=== PATIENT | male | born 1950 | race Caucasian/White ===

== ENCOUNTER 2021-04-14 18:10 | Emergency (ER) | payer OTHER, SELFPAY ==
[2021-04-14 18:23] VITALS: BP 110/57; PULSE 84; RESP 18; TEMP 37.2; O2SAT 91; BMI 38.4
--- NOTE | 2021-04-14 18:39 | CTR_ITS ---
PROCEDURE INFORMATION: Exam: CT Abdomen And Pelvis With Contrast Exam date and time: 04/14/2021 6:39 PM Age: 71 years old Clinical indication: Abdominal pain; Localized; Lower; Prior surgery; Surgery date: Post-operative (0-2 days); Patient HX: Post op pain, hernia repair x 1day. PT fell backwards into chair TECHNIQUE: Imaging protocol: Computed tomography of the abdomen and pelvis with contrast. Radiation optimization: All CT scans at this facility use at least one of these dose optimization techniques: automated exposure control; mA and/or kV adjustment per patient size (includes targeted exams where dose is matched to clinical indication); or iterative reconstruction. Contrast material: VISIPAQUE 320; Contrast volume: 95 ml; Contrast route: INTRAVENOUS (IV); COMPARISON: No relevant prior studies available. RADIATION DOSE METRICS: Total DLP (mGy-cm): 2496.33 FINDINGS: Lungs: Mild basilar atelectasis/scarring. Heart: Prosthetic aortic valve. Liver: Moderate hepatic steatosis. No focal lesions. Gallbladder and bile ducts: Normal. No calcified stones. No ductal dilation. Pancreas: Normal. No ductal dilation. Spleen: Normal. No splenomegaly. Adrenal glands: Normal. No mass. Kidneys and ureters: No hydroureteronephrosis or calculi. Kidneys enhance normally with no masses. Stomach and bowel: No obstruction. No inflammatory changes. Appendix: No evidence of appendicitis. Intraperitoneal space: No free air. No significant fluid collection. Vasculature: Extensive atherosclerotic calcification. Mild infrarenal abdominal aortic aneurysm measuring a maximum 3.2 cm diameter. No evidence of rupture. Lymph nodes: Unremarkable. No enlarged lymph nodes. Urinary bladder: Bladder is partially filled, with Patel catheter place. Reproductive: The prostate is not enlarged. Scrotal oedema. Bones/joints: Median sternotomy wires. No acute or aggressive osseous lesion. Soft tissues: Recent postsurgical changes bilateral inguinal regions with extensive subcutaneous stranding and small foci air. There is edema of the scrotum. No organized fluid collection identified. CT/CT abdomen pelvis w con* [id number] IMPRESSION: 1. Recent postoperative changes with extensive subcutaneous stranding edema throughout the inguinal regions at scrotum, with scattered but 5 air. No organized fluid collection. 2. Moderate hepatic steatosis. 3. 3.2 cm infrarenal abdominal aortic aneurysm. 4. Other chronic and incidental findings as described.
[2021-04-14 19:03] VITALS: RESP 16; O2SAT 94
[2021-04-14] MEDS: HYDROmorphone 1 mg/mL INJ 1 mL 0.5 MG IVP (19:03)
[2021-04-14] MEDS: ondansetron 2 mg/ML SDV 2 mL 4 MG IVP (19:03)
--- NOTE | 2021-04-14 19:14 | W.ED.ABDPA2 ---
HPI - Abdominal Pain General: Chief Complaint: Abdominal Pain Stated Complaint: abdominal pain/ fall Time Seen by Provider: 04/14/21 18:24 Source: patient and EMS Mode of arrival: EMS Limitations: no limitations History of Present Illness: HPI narrative: 71-year-old male who states he had bilateral inguinal hernia surgery done yesterday at [facility] he states that discharge him he is not been able to ambulate states that his cannot get him out of bed and is unable to take care of himself at home. States that he is having severe abdominal pain cannot take his hydrocodone due to it causing him severe constipation. He states he did not want to leave the hospital and they discharged him and he does not believe that he can go back home as he cannot take care of himself. States pain sharp in nature rates it a 7 out of 10 denies any vomiting or diarrhea. Associated Symptoms: Denies dysuria Review of Systems Const: Reports: fatigue Eyes: Denies: blurry vision or eye discomfort ENMT: Denies: throat pain or dental pain Card: Denies: chest pain Resp: Denies: dyspnea GI: Reports: abdominal pain : Denies: dysuria Musc: Denies: neck pain or back pain Skin/Breast: Denies: rash Neuro: Denies: headache(s) Psych: Denies: depression Moses/Lymph: Denies: easy bruising All/Imm: Denies: urticaria Physical Exam Const: COMMON NORMALS: no acute distress, patient oriented x3 and healthy appearing HENMT: COMMON NORMALS: normocephalic and atraumatic HEAD & SCALP: normocephalic and atraumatic Eye: COMMON NORMALS: Equal, round and reactive pupils present and EOMs intact bilaterally PUPIL: Yes Equal, round and reactive pupils present Neck/C-Spine: COMMON NORMALS: full ROM and supple Chest: COMMONS NORMALS: normal inspection of the chest and normal palpation of entire chest wall Resp: COMMON NORMALS: normal respiratory effort, No retractions, No use of accessory muscles and clear to auscultation bilaterally AUSCULTATION: clear to auscultation bilaterally Cardio: COMMON NORMALS: regular rate, regular rhythm and No murmurs present (Cardio) RATE: regular rate RHYTHM: regular rhythm GI: COMMON NORMALS: Normal to inspection, nondistended, normoactive bowel sounds present, Soft to palpation, non-tender and no masses PALPATION: Yes Soft to palpation Extremity: COMMON NORMALS: normal to inspection and full ROM Neuro: COMMON NORMALS: patient oriented x3, moves all extremities and no focal motor deficits Psych: COMMON NORMALS: mental status grossly normal, Normal thought process present and cooperative THOUGHT PROCESS: Normal thought process present Skin: COMMON NORMALS: no rashes or lesions noted and no wounds GENERAL SKIN EXAM: no rashes or lesions noted Course Vital Signs: Vital signs: Vital Signs Temperature 98.9 F 04/14/21 18:23 Pulse Rate 82 04/14/21 19:31 Respiratory Rate 16 04/14/21 19:31 Blood Pressure 110/57 04/14/21 18:23 Pulse Oximetry 94 04/14/21 19:31 MDM - Abdominal Pain MDM Narrative: Medical decision making narrative: Patient presents for severe postop abdominal pain states that he is unable to take care of himself at home unable to get out of bed and his is disabled and cannot help him either states his pain is severe is unable to control at home CT scan blood work here are all normal I spoke to physician at [facility] where he had the surgery and will transfer there. Patient transferred due to continued of care also as we have no bed availability here. Lab Data: Labs: Lab Results 04/14/21 04/14/21 04/14/21 19:15 19:15 19:41 WBC 9.7 10^3/uL 10^3/ uL (4.0-10.0) RBC 3.83 10^6/uL L 10 ^6/uL (4.1-5.3) Hgb 11.6 g/dL L g/dL (11.7-16.6) Hct 36.2 % L % (42.0-52.0) MCV 94.5 fl H fl (80-94) MCH 30.3 pg pg (28.0-34.0) MCHC 32.0 g/dL g/dL (30.0-36.0) RDW 16.0 % H % (12.1-15.1) Plt Count 146 10^3/cmm 10^3 /cmm (130-400) MPV 10.0 fL fL (7.4-10.4) Neut % (Auto) 72.8 % % Lymph % (Auto) 13.3 % % [place] % (Auto) 11.7 % % Eos % (Auto) 1.2 % % Baso % (Auto) 0.4 % % Neut # (Auto) 7.08 10^3/uL 10^3 /uL (1.8-7.7) Lymph # (Auto) 1.3 10^3/uL 10^3/ uL (0.8-4.8) [place] # (Auto) 1.1 10^3/uL H 10^ 3/uL (0.2-0.9) Eos # (Auto) 0.1 10^3/uL 10^3/ uL (0.0-0.8) Baso # (Auto) 0.0 10^3/uL 10^3/ uL (0.0-0.1) Nucleated RBC % (a uto) 0 % % Nucleated RBCs # 0.0 /100WBC /100W BC Sodium 135 mmol/L L mmol /L (136-145) Potassium 4.1 mmol/L mmol/L (3.5-5.1) Chloride 103 mmol/L mmol/L (98-107) Carbon Dioxide 23 mmol/L mmol/L (22-29) Anion Gap 13.1 (5-19) BUN 18 mg/dL mg/dL (8-23) Creatinine 1.4 mg/dL H mg/dL (0.7-1.2) GFR Calculation 50.1 mL/min L mL/ min (90-130) Glucose 129 mg/dL H mg/dL (65-115) Calculated Osmolal ity 284 mOsm/kg L mOs m/kg (285-295) Calcium 7.9 mg/dL L mg/dL (8.5-10.5) Total Bilirubin 0.7 mg/dL mg/dL (0.15-1.2) AST 22 U/L U/L (0-40) ALT 28 U/L U/L (0-41) Alkaline Phosphata se 45 IU/L IU/L (40-130) Total Protein 6.3 g/dL L g/dL (6.6-8.7) Albumin 3.7 g/dL g/dL (3.5-5.2) Globulin 2.6 g/dL g/dL (1.3-4.6) Lipase 16 U/L U/L (13-60) Urine Color Yellow (Yellow) Urine Appearance Hazy A (CLEAR) Urine pH 5 (5-7) Ur Specific Gravit y 1.015 (1.005-1.030) Urine Protein Neg (Negative) Urine Glucose (UA) 4+ H (Normal) Urine Ketones Negative (Negative) Urine Blood 2+ H (Negative) Urine Nitrate Negative (Negative) Urine Bilirubin Neg (Negative) Urine Urobilinogen Norm mg/dL mg/dL (Negative) Ur Leukocyte Princess ase Negative (Negative) Urine RBC 0-4 /hpf H /hpf (0-2) Urine WBC 5-10 /hpf H /hpf (0-5) Ur Squamous Epith Cells 0-4 /hpf H /hpf (0-5) Amorphous Sediment Not Reportable Urine Bacteria 1+ /hpf H /hpf (NONE) Imaging Data ^: CT Abd/Pel: Attestation: I personally reviewed and interpreted this imaging study as follows: Radiologist's impression: [place] [address] CT Scan Report Signed Patient: Deejay Dominguez Unit #: [id number] : 1950 Age/Sex: 71 / M ADM Date: 04/14/21 Loc: ER Room/Bed: Attending Dr: Ordering Provider/Ordering MD: Ely Stephen MD Date of Service: 04/14/21 Procedure(s): CT abdomen pelvis w con* [id number] Accession Number(s): [id number] Report Number: [id number] PROCEDURE INFORMATION: Exam: CT Abdomen And Pelvis With Contrast Exam date and time: 04/14/2021 6:39 PM Age: 71 years old Clinical indication: Abdominal pain; Localized; Lower; Prior surgery; Surgery date: Post-operative (0-2 days); Patient HX: Post op pain, hernia repair x 1day. PT fell backwards into chair TECHNIQUE: Imaging protocol: Computed tomography of the abdomen and pelvis with contrast. Radiation optimization: All CT scans at this facility use at least one of these dose optimization techniques: automated exposure control; mA and/or kV adjustment per patient size (includes targeted exams where dose is matched to clinical indication); or iterative reconstruction. Contrast material: VISIPAQUE 320; Contrast volume: 95 ml; Contrast route: INTRAVENOUS (IV); COMPARISON: No relevant prior studies available. RADIATION DOSE METRICS: Total DLP (mGy-cm): 2496.33 FINDINGS: Lungs: Mild basilar atelectasis/scarring. Heart: Prosthetic aortic valve. Liver: Moderate hepatic steatosis. No focal lesions. Gallbladder and bile ducts: Normal. No calcified stones. No ductal dilation. Pancreas: Normal. No ductal dilation. Spleen: Normal. No splenomegaly. Adrenal glands: Normal. No mass. Kidneys and ureters: No hydroureteronephrosis or calculi. Kidneys enhance normally with no masses. Stomach and bowel: No obstruction. No inflammatory changes. Appendix: No evidence of appendicitis. Intraperitoneal space: No free air. No significant fluid collection. Vasculature: Extensive atherosclerotic calcification. Mild infrarenal abdominal aortic aneurysm measuring a maximum 3.2 cm diameter. No evidence of rupture. Lymph nodes: Unremarkable. No enlarged lymph nodes. Urinary bladder: Bladder is partially filled, with Patel catheter place. Reproductive: The prostate is not enlarged. Scrotal oedema. Bones/joints: Median sternotomy wires. No acute or aggressive osseous lesion. Soft tissues: Recent postsurgical changes bilateral inguinal regions with extensive subcutaneous stranding and small foci air. There is edema of the scrotum. No organized fluid collection identified. CT/CT abdomen pelvis w con* [id number] IMPRESSION: 1. Recent postoperative changes with extensive subcutaneous stranding edema throughout the inguinal regions at scrotum, with scattered but 5 air. No organized fluid collection. 2. Moderate hepatic steatosis. 3. 3.2 cm infrarenal abdominal aortic aneurysm. 4. Other chronic and incidental findings as described. Dictated By: Jason Mulligan MD Signed By: Jason Mulligan MD Signed Date/Time: 04/14/212117 DD/ 38 Discharge Plan Discharge Patient Disposition: Xfer Short-Term Hosp Clinical Impression: Acute postoperative abdominal pain Condition: Stable Patient Instructions: Abdominal Pain (ED) Coding Level of Care Code ED Animated Cartoons Painter for Chg Fwd Exam Comprehensive
[2021-04-14 19:25] LABS: Basophils % 0.4 %; Eosinophils # 0.1 10^3/uL (0.0-0.8); Eosinophils % 1.2 %; Hematocrit 36.2 % (42.0-52.0); Hemoglobin 11.6 g/dL (11.7-16.6); Lymphocytes # 1.3 10^3/uL (0.8-4.8); Lymphocytes % 13.3 %; Mean Corpuscular Hemoglobin 30.3 pg (28.0-34.0); Mean Corpuscular Volume 94.5 fl (80-94); Monocytes # 1.1 10^3/uL (0.2-0.9); Monocytes % 11.7 %; Neutrophils # 7.08 10^3/uL (1.8-7.7); Neutrophils % 72.8 %; Nucleated Red Blood Cells % 0 %; Platelet Count 146 10^3/cmm (130-400); Red Blood Count 3.83 10^6/uL (4.1-5.3); White Blood Count 9.7 10^3/uL (4.0-10.0)
[2021-04-14 19:31] VITALS: PULSE 82; RESP 16; O2SAT 94
[2021-04-14 19:48] LABS: Glucose Urine UA 4+ (Normal); Ketones Urine Negative (Negative); Protein Urine Neg (Negative); Specific Gravity, Urine 1.015 (1.005-1.030); Urine Appearance Hazy (CLEAR); Urine Color Yellow (Yellow); pH Urine 5 (5-7)
[2021-04-14 19:49] LABS: Add Urine Microscopic? YES; Bilirubin Urine Neg (Negative); Blood Urine 2+ (Negative); Leukocyte Esterase Urine Negative (Negative); Nitrate Urine Negative (Negative); Urobilinogen Urine Norm (Negative)
[2021-04-14 19:51] LABS: Alanine Aminotransferase 28 U/L (0-41); Albumin Level 3.7 g/dL (3.5-5.2); Alkaline Phosphatase 45 IU/L (40-130); Anion Gap 13.1 (5-19); Aspartate Amino Transferase 22 U/L (0-40); Blood Urea Nitrogen 18 mg/dL (8-23); Calcium 7.9 mg/dL (8.5-10.5); Carbon Dioxide 23 mmol/L (22-29); Chloride 103 mmol/L (98-107); Globulin 2.6 g/dL (1.3-4.6); Glomerular Filtration Rate 50.1 mL/min (90-130); Glucose 129 mg/dL (65-115); Lipase 16 U/L (13-60); Osmolality Calculated 284 mOsm/kg (285-295); Potassium 4.1 mmol/L (3.5-5.1); Sodium 135 mmol/L (136-145); Total Bilirubin 0.7 mg/dL (0.15-1.2); Total Protein 6.3 g/dL (6.6-8.7)
[2021-04-14 19:54] LABS: Add Urine Culture? Yes; Bacteria Urine 1+ /hpf; RBC Urine 0-4 /hpf (0-2); Squamous Epithelial Cell Urine 0-4 /hpf (0-5)
[2021-04-14] MEDS: iodixanol 320 mg/mL 100mL Btl IV (20:10)
[2021-04-14 22:41] VITALS: BP 150/60; RESP 20; O2SAT 96
[2021-04-14 23:13] LABS: SARS Covid-2 Antigen Negative (Negative)
[2021-04-14] MEDS: enoxaparin 100 mg/mL Syringe SUBCUT (23:30)
[2021-04-14 23:31] VITALS: RESP 19
[2021-04-14] MEDS: HYDROmorphone 1 mg/mL INJ 1 mL IVP (23:31)
[2021-04-15 02:04] VITALS: BP 124/66; PULSE 81; RESP 18; O2SAT 92
[2021-04-15 03:42] VITALS: RESP 17
[2021-04-15] MEDS: HYDROmorphone 1 mg/mL INJ 1 mL IVP ×3 (03:42→11:02)
[2021-04-15] MEDS: lidocaine 5% Patch 1 PATCH TOPICAL (04:10)
[2021-04-15 04:11] VITALS: BP 116/59; PULSE 84; RESP 21; O2SAT 90
[2021-04-15 06:36] VITALS: BP 123/63; PULSE 87; RESP 16; O2SAT 91
--- NOTE | 2021-04-15 07:00 | PC.NURSE ---
Recieved report from YAMILEX Ruff. Rounded on pt, requested pt sign his transfer form. No further need at this time.
[2021-04-15 08:30] VITALS: RESP 18; O2SAT 94
[2021-04-15 11:02] VITALS: RESP 16; O2SAT 97
[2021-04-15] MEDS: ondansetron 2 mg/ML SDV 2 mL 4 MG IVP (11:08)
== END 2021-04-15 11:12 | disposition short-term general hospital (02) ==
PROVIDERS: Emergency Provider Emergency Medicine
DX: G89.18 Other acute postprocedural pain (principal); R10.9 Unspecified abdominal pain; Z20.822 Contact with and (suspected) exposure to COVID-19
CPT/HCPCS: 74177; 80053; 81001; 83690; 85025; 87086; 87426; 96372; 96374; 96375; 96376; 99285; 99291; J1170; J1650; J2405; Q9967

== ENCOUNTER 2023-07-19 10:04 | Emergency (ER) | payer OTHER, SELFPAY ==
[2023-07-19 10:12] VITALS: BP 127/79; PULSE 90; RESP 20; TEMP 36.5; O2SAT 96; BMI 36.1
--- NOTE | 2023-07-19 10:31 | XRR_ITS ---
PROCEDURE INFORMATION: Exam: XR Chest Exam date and time: 07/19/2023 10:37 AM Age: 73 years old Clinical indication: Cough and dyspnea; Additional info: Dyspnea/cough TECHNIQUE: Imaging protocol: Radiologic exam of the chest. Views: 1 view. COMPARISON: CT abdomen pelvis w con* [id number] 04/14/2021 8:08 PM FINDINGS: Tubes, catheters and devices: There is a left subclavian unipolar pacemaker in place. Lungs: There is linear atelectasis and/or scarring in the right lung base. There are no acute infiltrates. Pleural spaces: Unremarkable. No pleural effusion. No pneumothorax. Heart/Mediastinum: The heart size is upper limits of normal. Bones/joints: Patient has undergone previous median sternotomy. Patient has undergone previous lower cervical fusion surgery. XR/XR chest 1V portable [id number] IMPRESSION: 1. Pacemaker 2. Heart upper limits of normal 3. Negative for focal infiltrate. Negative for congestive heart failure
--- NOTE | 2023-07-19 10:32 | ECG_ITS ---
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 Measurements Intervals [place] Rate: 80 P: 29 NE: 191 QRS: -28 QRSD: 137 T: 25 QT: 374 QTc: 433 Interpretive Statements SINUS RHYTHM INTRAVENTRICULAR CONDUCTION DELAY [130+ ms QRS DURATION] MODERATE VOLTAGE CRITERIA FOR LVH, CONSIDER NORMAL VARIANT [MEETS CRITERIA IN ONE OF: R(aVL), S(V1), R(V5), R(V5/V6)+S(V1)] No previous ECG available for comparison Electronically Signed On 07-19-2023 15:19:58 CDT by Niles Brown M.D. [email or web address]
[2023-07-19 10:45] VITALS: BP 127/79; PULSE 75; RESP 18; O2SAT 95
--- NOTE | 2023-07-19 10:45 | ED_ITS ---
HPI - Arrhythmia/Palpitations 2 General: Chief Complaint: Arrhythmia/Palpitations Stated Complaint: sent from [facility], heart monitor not working right Time Seen by Provider: 07/19/23 10:15 Source: patient Mode of arrival: ambulatory History of Present Illness: 73-year-old male presents emergency room complaining of generally not feeling well little bit of short of breath mild chest discomfort. Patient has an ICD the monitoring device at home had evidently made a report to the monitoring station and he was called and told that the device was out of sync and he should present to the emergency room. He has not had any discharges he is not had any palpitations. He has not noticed any swelling or worsening orthopnea. Associated symptoms: Reports short of breath; Deny anxiety, cough, diaphoresis, muscle cramps, nausea, paresthesias, pre- syncope, sense of impending doom, syncope or vomiting Review of Systems 2 Const: Denies: fever(s), chills or diaphoresis Card: Denies: chest pain, syncope or pre-syncope Resp: Denies: dyspnea GI: Denies: abdominal pain, nausea or vomiting : Denies: dysuria, urinary frequency or urinary urgency Musc: Denies: neck pain, back pain or muscle cramps Skin/Breast: Denies: rash Psych: Denies: anxiety Physical Exam 2 Const: COMMON NORMALS: no acute distress GENERAL APPEARANCE: cooperative and comfortable ORIENTATION/CONSCIOUSNESS: Yes awake, Yes oriented to person, Yes oriented to place and Yes oriented to time HENMT: COMMON NORMALS: normocephalic, atraumatic and hearing grossly normal bilaterally HEAD & SCALP: normocephalic and atraumatic Resp: COMMON NORMALS: normal respiratory effort, No retractions, No use of accessory muscles and clear to auscultation bilaterally AUSCULTATION: clear to auscultation bilaterally Cardio: COMMON NORMALS: regular rate, regular rhythm and No murmurs present (Cardio) RATE: regular rate RHYTHM: regular rhythm GI: COMMON NORMALS: Soft to palpation and No hepatosplenomegaly present A USCULTATION: Yes normoactive bowel sounds PALPATION: Yes Soft to palpation, No Tenderness to palpation present (GI), No Guarding due to palpation present (GI) and Yes No hepatosplenomegaly present Extremity: COMMON NORMALS: normal to inspection, capillary refill normal, no clubbing, cyanosis or edema, no calf tenderness and no pedal edema Neuro: SENSORIUM/ORIENTATION: Yes oriented to person, Yes oriented to place and Yes oriented to time Skin: COMMON NORMALS: no rashes or lesions noted GENERAL SKIN EXAM: no rashes or lesions noted Course 2 Vital Signs: Vital signs: Vital Signs Temperature 97.7 F 07/19/23 10:12 Pulse Rate 68 07/19/23 14:06 Respiratory Rate 16 07/19/23 14:06 Blood Pressure 113/70 07/19/23 14:06 Pulse Oximetry 96 07/19/23 14:06 Oxygen Delivery Me thod Room Air 07/19/23 10:45 MDM - Arrhythmia/Palpitations Medical Decision Making Patient has been completely asymptomatic since arrival. No arrhythmias. Interrogation of the pacemaker shows it was not able to connect for routine monitoring on his home monitor at home but otherwise no other abnormalities on the report or per the tech report who prepared the report. We attempted to contact the cardiology office that had contacted him and told him to be evaluated we are not able to get in contact with the patient as he has had difficulty contacting them in the past as well. We monitored here for an extended period of time while we are trying to contact the tool programmer to find out what their concern was. Ultimately patient decided he would rather go home I do not see any reason to admit or do anything otherwise based on the heart monitor. His vitals have been stable he is completely asymptomatic prior to arrival and during his time here discharged home and encouraged him to follow-up with the cardiology clinic that he usually sees a soon as possible. Also advised to return if he has any complications problems or concerns. Medical Records I reviewed the patient's medical records. Lab Data I reviewed the patient's lab results. 07/19/23 10:40 07/19/23 10:40 Radiology Impressions Chest X-Ray 07/19/23 10:31 IMPRESSION: 1. Pacemaker 2. Heart upper limits of normal 3. Negative for focal infiltrate. Negative for congestive heart failure Laboratory Results WBC 6.98 10^3/uL (3.29-11.43) 07/19/23 10:40 RBC 5.50 10^6/uL (3.85-5.65) 07/19/23 10:40 Hgb 14.00 g/dL (11.27-16.99) 07/19/23 10:40 Hct 44.6 % (37-53) 07/19/23 10:40 MCV 81.1 fl (82-101) L 07/19/23 10:40 MCH 25.5 pg (27-33) L 07/19/23 10:40 MCHC 31.4 g/dL (30-55) 07/19/23 10:40 RDW 15.7 % (12.1-15.1) H 07/19/23 10:40 Plt Count 209 10^3/cmm (157-399) 07/19/23 10:40 MPV 9.5 fL (7.4-10.4) 07/19/23 10:40 Neut % (Auto) 64.9 % 07/19/23 10:40 Lymph % (Auto) 23.1 % 07/19/23 10:40 [place] % (Auto) 6.9 % 07/19/23 10:40 Eos % (Auto) 3.3 % 07/19/23 10:40 Baso % (Auto) 1.1 % 07/19/23 10:40 Neut # (Auto) 4.53 10^3/uL (1.8-7.7) 07/19/23 10:40 Lymph # (Auto) 1.6 10^3/uL (0.8-4.8) 07/19/23 10:40 [place] # (Auto) 0.5 10^3/uL (0.2-0.9) 07/19/23 10:40 Eos # (Auto) 0.2 10^3/uL (0.0-0.8) 07/19/23 10:40 Baso # (Auto) 0.1 10^3/uL (0.0-0.1) 07/19/23 10:40 Nucleated RBC % (auto) 0 % 07/19/23 10:40 Nucleated RBCs # 0.0 /100WBC 07/19/23 10:40 Sodium 136 mmol/L (136-145) 07/19/23 10:40 Potassium 4.3 mmol/L (3.5-5.1) 07/19/23 10:40 Chloride 99 mmol/L (98-107) 07/19/23 10:40 Carbon Dioxide 22 mmol/L (22-29) 07/19/23 10:40 Anion Gap 19.3 (5-19) H 07/19/23 10:40 BUN 15 mg/dL (8-23) 07/19/23 10:40 Creatinine 1.4 mg/dL (0.7-1.2) H 07/19/23 10:40 GFR Calculation Not Reportable 07/19/23 10:40 Glucose 177 mg/dL (65-115) H 07/19/23 10:40 Calculated Osmolality 287 mOsm/kg (285-295) 07/19/23 10:40 Calcium 8.6 mg/dL (8.5-10.5) 07/19/23 10:40 Total Bilirubin 0.4 mg/dL (0.15-1.2) 07/19/23 10:40 AST 27 U/L (0-40) 07/19/23 10:40 ALT 25 U/L (0-41) 07/19/23 10:40 Alkaline Phosphatase 54 U/L (40-130) 07/19/23 10:40 Troponin T Baseline 19 ng/L (0-15) H 07/19/23 10:40 Troponin T 120 Minute 16.87 ng/L (0-15) H 07/19/23 12:46 Delta Troponin T -2.13 ABS# (0-10) L 07/19/23 12:46 Total Protein 7.1 g/dL (6.6-8.7) 07/19/23 10:40 Albumin 4.3 g/dL (3.5-5.2) 07/19/23 10:40 Globulin 2.8 g/dL (1.3-4.6) 07/19/23 10:40 All radiology interpretation(s) finalized by discharge Discharge Plan Discharge Patient Disposition: Home Clinical Impression: Palpitations, Atypical chest pain Condition: Stable Prescriptions: No Action furosemide [Lasix] 40 mg Tablet 40 mg PO BID albuterol sulfate 2.5 mg /3 mL (0.083 %) Solution For Nebulization 2.5 mg INHALATION Q6H PRN (Reason: Shortness Of Breath) tramadol 50 mg Tablet 50 mg PO BID PRN (Reason: Pain) acetaminophen 500 mg Tablet 500 mg PO Q6H PRN (Reason: Pain) spironolactone 25 mg Tablet 25 mg PO DAILY famotidine 20 mg Tablet 20 mg PO BID tamsulosin [Flomax] 0.4 mg Capsule 0.4 mg PO BID meclizine 25 mg Tablet 25 mg PO TID PRN (Reason: dizziness) diphenhydramine HCl [Benadryl] 25 mg Capsule 25 mg PO BEDTIME PRN (Reason: Sleep) lansoprazole [Prevacid] 30 mg Capsule,Delayed Release(Dr/Ec) 30 mg PO BID lidocaine 5 % Adhesive Patch,Medicated 1 patch TOPICAL DAILY warfarin 5 mg Tablet See Rx Instructions .ROUTE .COMPLEX Rx Instructions: 5 mg orally daily except on (2.5 mg) hydrocortisone 2.5 % Cream 1 applic TOPICAL DAILY PRN (Reason: Rash) montelukast [Singulair] 10 mg Tablet 10 mg PO BID epinephrine [EpiPen] 0.3 mg/0.3 mL Auto-Injector 0.3 mg IM Q10M PRN (Reason: Allergic Reaction) polyethylene glycol 3350 [Miralax] 17 gram/dose Powder 17 g PO BID albuterol sulfate 90 mcg/actuation Hfa Aerosol Inhaler 2 puff INHALATION Q6H PRN (Reason: Shortness Of Breath) ondansetron 4 mg tablet,disintegrating 4 mg PO Q8H PRN (Reason: Nausea) fluticasone propionate [Flonase] 50 mcg/actuation [place],Suspension 1 spray INTRANASAL BID PRN (Reason: Nasal Congestion) finasteride 5 mg Tablet 5 mg PO DAILY loratadine 10 mg Tablet 10 mg PO DAILY PRN (Reason: Allergy Symptoms) budesonide-formoterol [Symbicort] 160-4.5 mcg/actuation Hfa Aerosol Inhaler 2 puff INHALATION BID cholecalciferol (vitamin D3) [Vitamin D3] 50 mcg (2,000 unit) Tablet 50 mcg PO BID Combivent Respimat 20-100 mcg/actuation Mist 1 puff INHALATION QID metoprolol succinate 50 mg Tablet Extended Release 24 Hr 50 mg PO BID Entresto 49-51 mg Tablet 1 tab PO BID Nitrostat 0.4 mg Tablet, Sublingual 0.4 mg SUBLINGUAL Q5M PRN (Reason: Chest Pain) Rx Instructions: do not exceed 3 doses per episode clobetasol 0.05 % Ointment 1 applic TOPICAL BID Refresh 1 % Drops, Liquid Gel 2 drp OPHTHALMIC (EYE) BID PRN (Reason: Dry Eye(S)) Zetia 10 mg Tablet 10 mg PO DAILY Jardiance 25 mg Tablet 25 mg PO QAM Discharge Orders: Discharge ED (Routine); Ordered 07/19/23 Ordered By: Abelino Abarca Referrals: Todd Bhatt [Primary Care Provider] - Patient Instructions: Opioid Safety, Pain Management Activity Restrictions/Additional Instructions: Thank you for choosing [facility] for your healthcare needs today. Please realize this is an emergency room and that we are providing you with a medical screening exam and this may not be complete and all inclusive of all the testing and or work up that you may need to determine your ailment or severity of your illness. It is very important that you follow up as instructed or that you return to the Emergency Department should you have concerns or if your condition changes or worsens in any way. You are seen today at the request of your [employer] monitoring company. On we did the interrogation there was 1 comments that the patient was unable to connect to the monitoring base in the early hours this morning but otherwise no significant abnormality the tech who reviewed it had contacted us at the time and report was transmitted to us it is a stated they had found no significant abnormality. We did attempt to contact your tool programmer Rayna Sky at [phone] and [phone] we were not able to contact them. Recommend that you attempt to contact them at their office to see if they have further recommendations. While you were here your EKG does not show any abnormalities your troponins were normal and your other laboratory work did not show any clinically significant abnormalities. If you have any worsening problems new symptoms or concerns return to the emergency room Coding Level of Care Code ED Antichecking Iron Worker for Kelvin Alcaraz
[2023-07-19 10:49] LABS: Basophils # 0.1 10^3/uL (0.0-0.1); Basophils % 1.1 %; Eosinophils # 0.2 10^3/uL (0.0-0.8); Eosinophils % 3.3 %; Hematocrit 44.6 % (37-53); Lymphocytes # 1.6 10^3/uL (0.8-4.8); Lymphocytes % 23.1 %; Mean Corpuscular HGB Conc 31.4 g/dL (30-55); Mean Corpuscular Hemoglobin 25.5 pg (27-33); Mean Corpuscular Volume 81.1 fl (82-101); Mean Platelet Volume 9.5 fL (7.4-10.4); Monocytes # 0.5 10^3/uL (0.2-0.9); Monocytes % 6.9 %; Neutrophils # 4.53 10^3/uL (1.8-7.7); Neutrophils % 64.9 %; Nucleated Red Blood Cells % 0 %; Platelet Count 209 10^3/cmm (157-399); Red Cell Distribution Width 15.7 % (12.1-15.1); White Blood Count 6.98 10^3/uL (3.29-11.43)
[2023-07-19 11:06] LABS: Alanine Aminotransferase 25 U/L (0-41); Albumin Level 4.3 g/dL (3.5-5.2); Alkaline Phosphatase 54 U/L (40-130); Anion Gap 19.3 (5-19); Aspartate Amino Transferase 27 U/L (0-40); Blood Urea Nitrogen 15 mg/dL (8-23); Calcium 8.6 mg/dL (8.5-10.5); Carbon Dioxide 22 mmol/L (22-29); Chloride 99 mmol/L (98-107); Creatinine Clr Calc Pharmacy 65.8774; Globulin 2.8 g/dL (1.3-4.6); Glucose 177 mg/dL (65-115); Osmolality Calculated 287 mOsm/kg (285-295); Potassium 4.3 mmol/L (3.5-5.1); Sodium 136 mmol/L (136-145); Total Bilirubin 0.4 mg/dL (0.15-1.2); Total Protein 7.1 g/dL (6.6-8.7)
[2023-07-19 11:12] LABS: Troponin(5th) Baseline 19 ng/L (0-15)
[2023-07-19 12:00] VITALS: BP 113/70; PULSE 72; RESP 17; O2SAT 95
[2023-07-19 13:20] LABS: Troponin 5 2HR 16.87 ng/L (0-15)
[2023-07-19 13:27] LABS: Troponin 5 2HR Delta -2.13 ABS# (0-10)
[2023-07-19 14:06] VITALS: BP 113/70; PULSE 68; RESP 16; O2SAT 96
== END 2023-07-19 14:07 | disposition home or self-care (01) ==
PROVIDERS: Emergency Provider Family Medicine; PCP Internal Medicine
DX: R07.89 Other chest pain (principal); R00.2 Palpitations; Z79.01 Long term (current) use of anticoagulants; Z95.810 Presence of automatic (implantable) cardiac defibrillator
CPT/HCPCS: 36415; 71045; 80053; 84484; 85025; 93005; 99285

== ENCOUNTER → 2023-11-21 09:19 | Outpatient (BNVA) | payer OTHER, SELFPAY | PROVIDERS: PCP Internal Medicine; Visit Provider Podiatrist Foot & Ankle Surgery | DX: E11.8 Type 2 diabetes mellitus with unspecified complications (principal); L60.0 Ingrowing nail | CPT/HCPCS: 99203 ==

== ENCOUNTER → 2023-12-13 08:55 | Outpatient (BNVA) | payer OTHER, SELFPAY | PROVIDERS: PCP Internal Medicine; Visit Provider Podiatrist Foot & Ankle Surgery | DX: L60.0 Ingrowing nail (principal) | CPT/HCPCS: 11750; A6219 ==

== ENCOUNTER → 2023-12-27 09:05 | Outpatient (BNVA) | payer OTHER, SELFPAY | PROVIDERS: PCP Internal Medicine; Visit Provider Podiatrist Foot & Ankle Surgery | DX: L60.0 Ingrowing nail (principal) | CPT/HCPCS: 99213 ==

== ENCOUNTER 2024-03-04 19:06 | Emergency (ER) | payer OTHER, SELFPAY ==
--- NOTE | 2024-03-04 19:10 | XRR_ITS ---
PROCEDURE INFORMATION: Exam: XR Left Knee Exam date and time: 03/04/2024 7:22 PM Age: 74 years old Clinical indication: Injury or trauma; Fall; Blunt trauma; Knee; Left TECHNIQUE: Imaging protocol: Radiologic exam of the left knee. Views: 3 views. COMPARISON: No relevant prior studies available. FINDINGS: Bones/joints: Moderate to severe tricompartmental osteoarthritis of the knee. Soft tissues: Normal. Vasculature: Scattered vascular calcifications. XR/XR knee LT 3V* [id number] IMPRESSION: 1. Negative for fracture or dislocation, if concern for fracture remains clinically consider further evaluation with CT given somewhat decreased bone mineral density. 2. Scattered vascular calcifications. 3. Moderate to severe tricompartmental osteoarthritis of the knee.
--- NOTE | 2024-03-04 19:10 | XRR_ITS ---
PROCEDURE INFORMATION: Exam: XR Left Hip Exam date and time: 03/04/2024 7:26 PM Age: 74 years old Clinical indication: Injury or trauma; Fall; Blunt trauma (contusions or hematomas); Left; Hip TECHNIQUE: Imaging protocol: Radiologic exam of the left hip. Views: 2 or 3 views hip with pelvis when performed. COMPARISON: CT abdomen pelvis w con* [id number] 04/14/2021 8:08 PM FINDINGS: Bones/joints: Mild left hip osteoarthritis. Soft tissues: Unremarkable. Vasculature: Scattered vascular calcifications XR/XR hip LT 2-3V wo/w pel* [id number] IMPRESSION: 1. Mild left hip osteoarthritis. 2. Scattered vascular calcifications
[2024-03-04 19:11] VITALS: BP 134/69; PULSE 75; RESP 18; TEMP 36.7; O2SAT 97; BMI 34.9
--- NOTE | 2024-03-04 19:14 | ED_ITS ---
HPI - Fall General: Chief Complaint: Fall Stated Complaint: FALL Time Seen by Provider: 03/04/24 19:08 Source: patient and EMS Mode of arrival: EMS Limitations: no limitations History of Present Illness: 74-year-old male states that he slipped on water at home he states that he had bent his left leg backwards and felt a pop in his knee states been having severe pain in that knee that radiates to his hip since that fall. He states he is unable to bear any weight at this time. Denies any other injuries denies hitting his head. Associated symptoms-after fall: Denies abdominal pain, chest pain, headache(s) or neck pain Related Data Home Medications Medication Instructions Recorded Confirmed acetaminophen 500 mg tablet 500 mg PO Q6H PRN Pain 04/15/21 12/27/23 albuterol sulfate 2.5 mg/3 mL 2.5 mg inhalation Q6H PRN 04/15/21 12/27/23 (0.083 %) solution for nebulization Shortness Of Breath albuterol sulfate 90 mcg/actuation 2 puff inhalation Q6H PRN 04/15/21 12/27/23 aerosol inhaler Shortness Of Breath budesonide-formoterol HFA 160 2 puff inhalation BID 04/15/21 12/27/23 mcg-4.5 mcg/actuation aerosol inhaler (Symbicort) cholecalciferol (vitamin D3) 50 50 mcg PO BID 04/15/21 12/27/23 mcg (2,000 unit) tablet (Vitamin D3) diphenhydramine HCl 25 mg capsule 25 mg PO BEDTIME PRN Sleep 04/15/21 12/27/23 (Benadryl) epinephrine 0.3 mg/0.3 mL 0.3 mg IM Q10M PRN Allergic 04/15/21 12/27/23 injection, auto-injector (EpiPen) Reaction famotidine 20 mg tablet 20 mg PO BID 04/15/21 12/27/23 finasteride 5 mg tablet 5 mg PO DAILY 04/15/21 12/27/23 fluticasone propionate 50 1 spray intranasal BID PRN Nasal 04/15/21 12/27/23 mcg/actuation nasal Congestion spray,suspension furosemide 40 mg tablet (Lasix) 40 mg PO BID 04/15/21 12/27/23 hydrocortisone 2.5 % topical cream 1 applic topical DAILY PRN Rash 04/15/21 12/27/23 ipratropium 20 mcg-albuterol 100 1 puff inhalation QID 04/15/21 12/27/23 mcg/actuation mist for inhalation (Combivent Respimat) lansoprazole 30 mg capsule,delayed 30 mg PO BID 04/15/21 12/27/23 release (Prevacid) lidocaine 5 % topical patch 1 patch topical DAILY 04/15/21 12/27/23 loratadine 10 mg tablet 10 mg PO DAILY PRN Allergy Symptoms 04/15/21 12/27/23 meclizine 25 mg tablet 25 mg PO TID PRN dizziness 04/15/21 12/27/23 montelukast 10 mg tablet 10 mg PO BID 04/15/21 12/27/23 (Singulair) ondansetron 4 mg disintegrating 4 mg PO Q8H PRN Nausea 04/15/21 12/27/23 tablet polyethylene glycol 3350 17 17 g PO BID 04/15/21 12/27/23 gram/dose oral powder (Miralax) spironolactone 25 mg tablet 25 mg PO DAILY 04/15/21 12/27/23 tamsulosin 0.4 mg capsule (Flomax) 0.4 mg PO BID 04/15/21 12/27/23 tramadol 50 mg tablet 50 mg PO BID PRN Pain 04/15/21 12/27/23 warfarin 5 mg tablet See Rx Instructions .Route .COMPLEX 04/15/21 12/27/23 carboxymethylcellulose sodium 1 % 2 drp ophthalmic (eye) BID PRN Dry 07/19/23 12/27/23 eye liquid gel drops Eye(S) clobetasol 0.05 % topical ointment 1 applic topical BID 07/19/23 12/27/23 empagliflozin 25 mg tablet 25 mg PO QAM 07/19/23 12/27/23 (Jardiance) ezetimibe 10 mg tablet (Zetia) 10 mg PO DAILY 07/19/23 12/27/23 metoprolol succinate 50 mg 50 mg PO BID 07/19/23 12/27/23 tablet,extended release 24 hr nitroglycerin 0.4 mg sublingual 0.4 mg sublingual Q5M PRN Chest 07/19/23 12/27/23 tablet (Nitrostat) Pain sacubitril 49 mg-valsartan 51 mg 1 tab PO BID 07/19/23 12/27/23 tablet (Entresto) Previous Rx's Medication Instructions Recorded hydrocodone 5 mg-acetaminophen 325 1 tab PO Q6H PRN pain #14 tabs 03/04/24 mg tablet Allergies Allergy/AdvReac Type Severity Reaction Status Date / Time Penicillins Allergy ALGY-Anaphy Verified 03/04/24 19:14 laxis Bee and Wasp Venom Allergy ALGY-Anaphy Uncoded 03/04/24 19:14 laxis Review of Systems Const: Denies: fever(s), chills, body aches or change in appetite ENMT: Denies: throat pain or dental pain Card: Denies: chest pain Resp: Denies: dyspnea GI: Denies: abdominal pain, nausea, vomiting or diarrhea Musc: Reports: extremity pain; Denies: neck pain or back pain Skin/Breast: Denies: rash Neuro: Denies: headache(s) PFSH ED PFSH: Social History Smoking and tobacco/nicotine status: never used tobacco/nicotine Physical Exam Const: COMMON NORMALS: no acute distress, patient oriented x3 and healthy appearing HENMT: COMMON NORMALS: normocephalic and atraumatic HEAD & SCALP: normocephalic and atraumatic Eye: COMMON NORMALS: Equal, round and reactive pupils present and EOMs intact bilaterally PUPIL: Yes Equal, round and reactive pupils present Neck/C-Spine: COMMON NORMALS: full ROM and supple Chest: COMMONS NORMALS: normal inspection of the chest Resp: COMMON NORMALS: normal respiratory effort Cardio: COMMON NORMALS: regular rate, regular rhythm and No murmurs present (Cardio) RATE: regular rate RHYTHM: regular rhythm Extremity: NARRATIVE EXTREMITY EXAM: Some swelling tenderness noted left knee does have pain with range of motion Neuro: COMMON NORMALS: patient oriented x3, moves all extremities and no focal motor deficits Psych: COMMON NORMALS: mental status grossly normal, Normal thought process present and cooperative THOUGHT PROCESS: Normal thought process present Skin: COMMON NORMALS: no rashes or lesions noted and no wounds GENERAL SKIN EXAM: no rashes or lesions noted Course Vital Signs: Vital signs: Vital Signs Temperature 98.0 F 03/04/24 19:11 Pulse Rate 72 03/04/24 19:32 Respiratory Rate 17 03/04/24 19:32 Blood Pressure 125/67 03/04/24 19:32 Pulse Oximetry 94 03/04/24 19:32 Oxygen Delivery Me thod Room Air 03/04/24 19:32 MDM - Fall Medical Decision Making Patient presents here with a knee sprain from a fall x-ray showed no fractures did place him in a knee immobilizer he is to weight-bear as tolerated we will get him follow-up with orthopedics he is return if worsening. Lab Data Radiology Impressions Hip/Pelvis X-Ray 03/04/24 19:10 IMPRESSION: 1. Mild left hip osteoarthritis. 2. Scattered vascular calcifications Knee X-Ray 03/04/24 19:10 IMPRESSION: 1. Negative for fracture or dislocation, if concern for fracture remains clinically consider further evaluation with CT given somewhat decreased bone mineral density. 2. Scattered vascular calcifications. 3. Moderate to severe tricompartmental osteoarthritis of the knee. All radiology interpretation(s) finalized by discharge Discharge Plan Discharge Patient Disposition: Home Clinical Impression: Left knee sprain Qualifiers: Encounter type: initial encounter Condition: Stable Prescriptions: New hydrocodone-acetaminophen 5-325 mg tablet 1 tab PO Q6H PRN (Reason: pain) Qty: 14 0RF No Action furosemide [Lasix] 40 mg Tablet 40 mg PO BID albuterol sulfate 2.5 mg /3 mL (0.083 %) Solution For Nebulization 2.5 mg INHALATION Q6H PRN (Reason: Shortness Of Breath) tramadol 50 mg Tablet 50 mg PO BID PRN (Reason: Pain) acetaminophen 500 mg Tablet 500 mg PO Q6H PRN (Reason: Pain) spironolactone 25 mg Tablet 25 mg PO DAILY famotidine 20 mg Tablet 20 mg PO BID tamsulosin [Flomax] 0.4 mg Capsule 0.4 mg PO BID meclizine 25 mg Tablet 25 mg PO TID PRN (Reason: dizziness) diphenhydramine HCl [Benadryl] 25 mg Capsule 25 mg PO BEDTIME PRN (Reason: Sleep) lansoprazole [Prevacid] 30 mg Capsule,Delayed Release(Dr/Ec) 30 mg PO BID lidocaine 5 % Adhesive Patch,Medicated 1 patch TOPICAL DAILY warfarin 5 mg Tablet See Rx Instructions .ROUTE .COMPLEX Rx Instructions: 5 mg orally daily except on Weds (2.5 mg) hydrocortisone 2.5 % Cream 1 applic TOPICAL DAILY PRN (Reason: Rash) montelukast [Singulair] 10 mg Tablet 10 mg PO BID epinephrine [EpiPen] 0.3 mg/0.3 mL Auto-Injector 0.3 mg IM Q10M PRN (Reason: Allergic Reaction) polyethylene glycol 3350 [Miralax] 17 gram/dose Powder 17 g PO BID albuterol sulfate 90 mcg/actuation Hfa Aerosol Inhaler 2 puff INHALATION Q6H PRN (Reason: Shortness Of Breath) ondansetron 4 mg tablet,disintegrating 4 mg PO Q8H PRN (Reason: Nausea) fluticasone propionate [Flonase] 50 mcg/actuation [place],Suspension 1 spray INTRANASAL BID PRN (Reason: Nasal Congestion) finasteride 5 mg Tablet 5 mg PO DAILY loratadine 10 mg Tablet 10 mg PO DAILY PRN (Reason: Allergy Symptoms) budesonide-formoterol [Symbicort] 160-4.5 mcg/actuation Hfa Aerosol Inhaler 2 puff INHALATION BID cholecalciferol (vitamin D3) [Vitamin D3] 50 mcg (2,000 unit) Tablet 50 mcg PO BID Combivent Respimat 20-100 mcg/actuation Mist 1 puff INHALATION QID metoprolol succinate 50 mg Tablet Extended Release 24 Hr 50 mg PO BID Entresto 49-51 mg Tablet 1 tab PO BID Nitrostat 0.4 mg Tablet, Sublingual 0.4 mg SUBLINGUAL Q5M PRN (Reason: Chest Pain) Rx Instructions: do not exceed 3 doses per episode clobetasol 0.05 % Ointment 1 applic TOPICAL BID Refresh 1 % Drops, Liquid Gel 2 drp OPHTHALMIC (EYE) BID PRN (Reason: Dry Eye(S)) Zetia 10 mg Tablet 10 mg PO DAILY Jardiance 25 mg Tablet 25 mg PO QAM Discharge Orders: Discharge ED (Routine); Ordered 03/04/24 Ordered By: Ely Stephen Referrals: Clarence Gurrola DO [Physician] - 4-7 days Todd Bhatt [Primary Care Provider] - Discharge Diet: Advance as tolerated Discharge Activity: Resume usual activity Patient Instructions: Knee Sprain (ED), Opioid Safety Coding Level of Care Code ED Home Health Care Case Manager for Chg Fwd
[2024-03-04] MEDS: HYDROcodone-acetaminophen 7.5-325 mg Tablet 1 TAB PO (19:21)
[2024-03-04 19:32] VITALS: BP 125/67; PULSE 72; RESP 17; O2SAT 94
--- NOTE | 2024-03-04 19:42 | PC.NURSE ---
pt refusing crutches at this time stating won't use them, i have a walker at home.
[2024-03-04 20:28] VITALS: BP 141/71; PULSE 72; O2SAT 96
--- NOTE | 2024-03-07 02:28 | DCPLANNER ---
Message sent to Ortho for a follow up on a Left Knee Sprain.
== END 2024-03-04 20:29 | disposition home or self-care (01) ==
PROVIDERS: Emergency Provider Emergency Medicine; PCP Internal Medicine
DX: S83.92XA Sprain of unspecified site of left knee, initial encounter (principal); Z79.01 Long term (current) use of anticoagulants; W01.0XXA Fall on same level from slipping, tripping and stumbling without subsequent striking against object, initial encounter
CPT/HCPCS: 29530; 73502; 73562; 99283

== ENCOUNTER → 2024-03-18 09:15 | Outpatient (BNVA) | payer OTHER, SELFPAY | PROVIDERS: PCP Internal Medicine; Visit Provider Physician Assistant | DX: M25.562 Pain in left knee (principal); S76.112A Strain of left quadriceps muscle, fascia and tendon, initial encounter; W18.40XA Slipping, tripping and stumbling without falling, unspecified, initial encounter | CPT/HCPCS: 73560; 73565; 99203 ==

== ENCOUNTER 2024-03-31 12:58 | Outpatient (CLI) | payer OTHER, SELFPAY ==
--- NOTE | 2024-03-31 13:30 | CT_ITS ---
WS: [id number] CT LEFT FEMUR, NONCONTRAST HISTORY: left quadrant rupture Technique: All CT scans at [facility] use at least one of these dose optimization techniques: automated exposure control; mA and/or kV adjustment per patient size (includes targeted exams where dose is matched to clinical indication); or iterative reconstruction. DLP: 1212.37 mGy.cm COMPARISON: None available. There is a large amount of edema surrounding the distal conjoined quadriceps tendon at the level of t he superior patella. Loss of the normal appearance of the conjoined tendon beginning approximately 8 cm above the patella insertion site. There is a large amount of edema at this site. Loss of the norm al architecture. There may be a few strands remaining of the quadriceps tendon that are intact but th e majority appears torn. Extensive soft tissue edema in the rectus femoris muscle extending into the vastus intermedius. Suspect at least partial tears of both rectus femoris and vastus intermedius. May be complete tears. Greatest involvement of the rectus femoris tendon. Normal position of the patellar remains. Enthesopathy noted from the superior surface of the patella but no avulsion fracture. Calcifications noted extensively in the superficial femoral artery and the small muscular branches and below the knee. CT/CT lower leg LT wo con* [id number] IMPRESSION: 1. Abnormal attenuation involving the distal conjoined quadriceps tendon exten ding over 8 cm. The quadriceps tendon is not identified and appears to be retra cted with a high-grade tear. Edema and mixed attenuation which is probably bloo d through the distal 8 cm of the tendon. Predominantly the rectus femoris and t he vastus intermedius are involved. If more detail is necessary and MRI is not possible ultrasound may provide additional information concerning for gap. 2. Extensive vascular calcifications in the superficial femoral artery below t he knee. 3. Patella remains in normal position.
== END 2024-03-31 12:59 | disposition home or self-care (01) ==
LOC: RAD 12:58
PROVIDERS: PCP Internal Medicine; Visit Provider Physician Assistant
DX: S76.112A Strain of left quadriceps muscle, fascia and tendon, initial encounter (principal); X58.XXXA Exposure to other specified factors, initial encounter; I70.292 Other atherosclerosis of native arteries of extremities, left leg
CPT/HCPCS: 73700

== ENCOUNTER → 2024-04-11 07:44 | Outpatient (BNVA) | payer OTHER, SELFPAY | PROVIDERS: PCP Internal Medicine; Visit Provider Student in an Organized Health Care Education/Training Program | DX: S76.112A Strain of left quadriceps muscle, fascia and tendon, initial encounter; X58.XXXA Exposure to other specified factors, initial encounter | CPT/HCPCS: 99214 ==

== ENCOUNTER 2024-04-16 09:29 | Day surgery (SDC) | payer OTHER, SELFPAY ==
[2024-04-16] VITALS (9 sets, daily range): BP systolic 127–160; BP diastolic 65–83; PULSE 74–81; RESP 16–17; TEMP 36.2–36.6; O2SAT 90–96; BMI 34.2
--- NOTE | 2024-04-16 | XR_ITS ---
WS: [id number] Exam: XR knee LT 1-2V [id number] Date/Time of Exam: 04/16/2024 12:00 AM Reason For Exam: WAYNE PICS Intraoperative AP images of the LEFT knee are submitted. Images were obtained for intraoperative visu alization purposes.
--- NOTE | 2024-04-16 10:28 | ANES.PREANE2 ---
Pre-Anesthetic Assessment Height/Weight: Height 6 ft 1 in Preop Diagnosis: Ruptured quadriceps tendon Operation Date: 04/16/24 12:05 Proposed Procedures p Tendon Repair Quadriceps(Left) - Clarence Gurrola DO s Graft Augmentation(Left) - Clarence Gurrola DO Social No alcohol and No tobacco Exam alert, oriented x 3, clear to auscultation bilaterally and regular rate & rhythm Airway Submandibular: within normal limits Cervical ROM: within normal limits Mallampati: Class III Dentition: false Comments: Comments: Bottom implants Anesthetic Plan ASA status: 3 Anesthesia: General Other: No prior issues with anesthesia, patient has had 30+ surgeries without issues NPO since yesterday Significant cardiac history including 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 Defibrillator in place, patient states it is not a pacemaker but they can control his heart rate. Will plan on placing magnet over defibrillator Prior documentation of A-fib, patient is unaware of this. 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 States he needs a smaller breathing tube On chronic warfarin, INR pending Plan for general anesthesia with LMA Medications/Allergies Home Medications Medication Instructions Recorded Confirmed Last Taken Type acetaminophen 500 mg tablet 500 mg PO Q6H PRN Pain 04/15/21 04/15/24 Unknown History albuterol sulfate 2.5 mg/3 mL 2.5 mg inhalation Q6H PRN 04/15/21 04/15/24 04/14/24 History (0.083 %) solution for nebulization Shortness Of Breath albuterol sulfate 90 mcg/actuation 2 puff inhalation Q6H PRN 04/15/21 04/15/24 Unknown History aerosol inhaler Shortness Of Breath budesonide-formoterol HFA 160 2 puff inhalation BID 04/15/21 04/16/24 04/15/24 History mcg-4.5 mcg/actuation aerosol inhaler (Symbicort) cholecalciferol (vitamin D3) 50 50 mcg PO BID 04/15/21 04/15/24 04/15/24 History mcg (2,000 unit) tablet (Vitamin D3) diphenhydramine HCl 25 mg capsule 25 mg PO BEDTIME PRN Sleep 04/15/21 04/15/24 Unknown History (Benadryl) epinephrine 0.3 mg/0.3 mL 0.3 mg IM Q10M PRN Allergic 04/15/21 04/15/24 Unknown History injection, auto-injector (EpiPen) Reaction famotidine 20 mg tablet 20 mg PO BID 04/15/21 04/15/24 04/15/24 History finasteride 5 mg tablet 5 mg PO DAILY 04/15/21 04/15/24 04/14/24 History fluticasone propionate 50 1 spray intranasal BID PRN Nasal 04/15/21 04/15/24 04/15/24 History mcg/actuation nasal Congestion spray,suspension furosemide 40 mg tablet (Lasix) 40 mg PO DAILY 04/15/21 04/15/24 04/15/24 History hydrocortisone 2.5 % topical cream 1 applic topical DAILY PRN Rash 04/15/21 04/15/24 Unknown History ipratropium 20 mcg-albuterol 100 1 puff inhalation QID 04/15/21 04/15/24 04/15/24 History mcg/actuation mist for inhalation (Combivent Respimat) lansoprazole 30 mg capsule,delayed 30 mg PO BID 04/15/21 04/15/24 04/15/24 History release (Prevacid) lidocaine 5 % topical patch 1 patch topical DAILY 04/15/21 04/15/24 07/19/23 History loratadine 10 mg tablet 10 mg PO DAILY PRN Allergy Symptoms 04/15/21 04/15/24 04/15/24 History meclizine 25 mg tablet 25 mg PO TID PRN dizziness 04/15/21 04/15/24 Unknown History montelukast 10 mg tablet 10 mg PO BID 04/15/21 04/15/24 04/15/24 History (Singulair) ondansetron 4 mg disintegrating 4 mg PO Q8H PRN Nausea 04/15/21 04/15/24 Unknown History tablet polyethylene glycol 3350 17 17 g PO BID 04/15/21 04/15/24 04/15/24 History gram/dose oral powder (Miralax) spironolactone 25 mg tablet 25 mg PO DAILY 04/15/21 04/15/24 04/14/24 History tamsulosin 0.4 mg capsule (Flomax) 0.4 mg PO BID 04/15/21 04/15/24 04/15/24 History tramadol 50 mg tablet 50 mg PO BID PRN Pain 04/15/21 04/15/24 Unknown History warfarin 5 mg tablet See Rx Instructions .Route .COMPLEX 04/15/21 04/15/24 04/11/24 History carboxymethylcellulose sodium 1 % 2 drp ophthalmic (eye) BID PRN Dry 07/19/23 04/15/24 04/15/24 History eye liquid gel drops Eye(S) clobetasol 0.05 % topical ointment 1 applic topical BID 07/19/23 04/15/24 04/14/24 History empagliflozin 25 mg tablet 25 mg PO QAM 07/19/23 04/15/24 04/15/24 History (Jardiance) ezetimibe 10 mg tablet (Zetia) 10 mg PO DAILY 07/19/23 04/15/24 04/14/24 History metoprolol succinate 50 mg 50 mg PO DAILY 07/19/23 04/15/24 04/15/24 History tablet,extended release 24 hr nitroglycerin 0.4 mg sublingual 0.4 mg sublingual Q5M PRN Chest 07/19/23 04/15/24 Unknown History tablet (Nitrostat) Pain sacubitril 49 mg-valsartan 51 mg 1 tab PO BID 07/19/23 04/15/24 04/15/24 History tablet (Entresto) hydrocodone 5 mg-acetaminophen 325 1 tab PO Q6H PRN pain #14 tabs 03/04/24 04/15/24 Unknown Rx mg tablet enoxaparin 80 mg/0.8 mL 80 mg SUBCUT Q12H 04/15/24 04/16/24 04/15/24 06:00 History subcutaneous syringe (Lovenox) Allergies Allergy/AdvReac Type Severity Reaction Status Date / Time adhesive Allergy Mild ADR-Itching Verified 04/15/24 14:25 bee venom protein (honey bee) Allergy ALGY-Anaphy Verified 04/15/24 14:25 laxis Penicillins Allergy ALGY-Anaphy Verified 04/15/24 14:25 laxis venom-wasp protein Allergy ALGY-Anaphy Verified 04/15/24 14:25 laxis PFSH Anesthesia Social History Smoking and tobacco/nicotine status: never used tobacco/nicotine Data Anesthesia Cardiac Studies: No Data to Display
[2024-04-16 10:43] LABS: Glucose Point of Care 119 mg/dL (70-110)
[2024-04-16] MEDS: sodium chloride 0.9% 1,000 ML 30 ML IV (10:47)
[2024-04-16] MEDS: acetaminophen 1,000 MG/100 ML PIGGYBACK 400 MG IV (10:48)
[2024-04-16 11:07] LABS: Anion Gap 15.4 (5-19); Blood Urea Nitrogen 12 mg/dL (8-23); Carbon Dioxide 23 mmol/L (22-29); Chloride 101 mmol/L (98-107); Creatinine Clr Calc Pharmacy 88.5085; Glucose 118 mg/dL (65-115); Osmolality Calculated 281 mOsm/kg (285-295); Potassium 4.4 mmol/L (3.5-5.1); Sodium 135 mmol/L (136-145)
--- NOTE | 2024-04-16 11:10 | W.PM.OPSUD ---
Surgery/Procedure H&P Update DATE OF PROCEDURE: April 16, 2024 DATE H&P PERFORMED: 04/11/24 H&P UPDATE INFORMATION: I have reviewed H&P completed within last 30 days, I have examined patient prior to procedure and No changes to prior documentation CHANGES TO PREVIOUS DOCUMENTATION: Patient stopped his Coumadin and on a Lovenox bridge per his [facility] provider he was rechecked on his INR which was 1.0 this morning. Again patient is unable to perform a straight leg raise palpable defect at the quad plan to proceed with a left knee quadricep tendon repair with possible graft augmentation. Patient understands agrees to current plan. Questions answered. PREOP DIAGNOSIS: Ruptured quadriceps tendon PRIMARY INDICATION FOR PROCEDURE: Left knee rupture quadricep tendon PLANNED PROCEDURE: Operation Date: 04/16/24 12:05 Proposed Procedures p Tendon Repair Quadriceps(Left) - Clarence Gurrola DO s Graft Augmentation(Left) - Clarence Gurrola DO
[2024-04-16] MEDS: clindamycin 900 MG/50 ML PREMIX 100 MG IV (11:30)
[2024-04-16] MEDS: VANCOMYCIN ADD-Vantage 1,000 MG VIAL 1000 MG XX (13:01)
[2024-04-16] MEDS: lidocaine 2% INJ 20 mL INJECTION (13:10)
[2024-04-16] MEDS: ROPivacaine 0.5% SDV 30 mL 150 MG INJECTION (13:10)
--- NOTE | 2024-04-16 13:19 | W.PM.BPON ---
Date of Procedure: 04/16/2024 Surgeon: Clarence Gurrola DO [employer] Instructor(s): Basil Gurrola PA-C Procedure(s) performed: Left knee quadricep tendon repair Findings of the procedure(s): Patient was found to have left knee complete quadricep tendon rupture underwent procedure as planned without complications utilizing standard bone tunnel technique. Patient placed in knee immobilizer will be toe-touch weightbearing to the left lower extremity, follow-up in 2 weeks Estimated blood loss: 20 mL Specimen(s) removed: None Post-operative diagnosis: Left knee quadricep tendon rupture
--- NOTE | 2024-04-16 13:20 | PM.OP ---
Operative Report Date of procedure: April 16, 2024 Surgeon: Clarence Gurrola DO Occupational Health Nurse Supervisor: Basil Gurrola PA-C: GRACE was necessary for assistance in this case with leg positioningAssisting with repair and suture assistance, retraction and protection of neurovascular structures as well as assistance in implantation wound closure and dressing application. Procedure: Preop Diagnosis Left quadricep tendon rupture Post-op diagnosis: Left quadricep tendon rupture Procedure done: Left knee quadriceps tendon repair Implants: Arthrex fiberwire Surgeon: Clarence Gurrola DO Occupational Health Nurse Supervisor: Basil Gurrola PA-C PA-C was necessary for assistance in this case to assist with maintaining position during tendon repair as well as to assist with leg positioning and retractor and protection of neurovascular structures as well as to assist with wound closure. Estimated blood loss: 20mL tourniquet 69 minutes IV fluids: 1000 mL Complications: None Findings: See operative report narrative Condition: stable Disposition: same day Brief History: Patient's been seen and worked up in the outpatient setting is a pleasant 74-year-old gentleman who is failed conservative approach has had an MRI of the left knee findings consistent with quad tendon tear at the insertion site. Patient has significant weakness and pain in this area he is failed conservative treatment at this point time through shared decision making would recommend a left quadricep tendon repair. He understands the risk benefits complication alternatives surgery wants proceed with surgical intervention all questions answered. Procedure: Patient seen eval in the preoperative holding area. Consent was reviewed and signed with patient. Correct extremity was then marked. Patient was then seen eval by anesthesia once cleared for surgery was taken back to the operative suite he is transported the OR table all bony prominences well-padded patient prepped secured to bed he is placed in supine position a bump was placed under the ipsilateral hip. He then underwent anesthesia per the anesthesia department. Once appropriate anesthetized a nonsterile tourniquet was applied to the left thigh. The left lower extremity was then prepped and draped in standard orthopedic fashion. Final timeout performed. Patient received appropriate preoperative antibiotics. Esmarch tourniquet was used exsanguinate the left lower extremity and tourniquet with is insufflated to 250 mmHg A standard anterior midline incision was made to the left knee sharp scalpel incision through skin and subcutaneous tissue created full-thickness skin flaps to lie came down directly over the quadricep tendon patient was found to have a full thickness quad tendon tear. At this point in time I then utilized a sharp scalpel incision to remove Any scar tissue adhesions off of the patella and the tendon to allow for satisfactory healing in preparation. The tear did extend slightly into the retinaculum's medially and laterally. I then utilized a Maynard elevator to mobilize the quad tendon underneath and superficially to have appropriate quad tendon excursion this was able to be fully tensioned and pulled directly onto the insertion site. I then thoroughly irrigated the wound bed and the knee joint this was all suctioned free. Once this was performed I utilized electrocautery to electrocautery off the diseased tendon off of the superior pole of the patella to create appropriate wound bed surface. The tissue was mobilized anteriorly off of the patella to have appropriate full-thickness bed for tendon repair. This tissue was then debrided to healthy tissue as there was significant tendinopathy and diseased tendon at the distal aspects of the tendon as it inserts on the patella. I then at this point in time utilized sharp scalpel as well as curettage as well as rongeur to debride the superior pole patella for preparation of quadricep tendon repair. I then utilized the knife to debride the diseased tendon proximally to healthy bleeding tendon tissue. Once I was satisfied with my debridement preparation for repair I then took Arthrex's fiberwire and placed this in standard whipstitch fashion up and down the tendon with 2 strands on the 1 side of the tendon and with additional 2 strands on the other side of the tendon the suture ends were then subsequently cut and at this point time is ready for placement of bone tunnels.In this process one of the small tips of the needle blunted and chipped off I did utilize mini C arm to identify this small little piece of the needle which was then subsequently removed as it was found to be in in the subcutaneous tissue was removed and confirmatory x-rays demonstrate there is no residual foreign bodies. I then keeping the finger underneath the patella drilled a midline tunnel as well as a medial lateral tunnel. I loaded my 2 medial sutures and my glass ribbon machine operator assistant helped and passing knees with a Eddie suture passer and shuttled the sutures through and then subsequently shuttled my medial and lateral individual's through bone tunnels utilizing Quinn suture passer. Once this was then performed I then placed a bump underneath the ankle and my glass ribbon machine operator assistant held this leg position and I subsequently tied over the bone tunnels and had excellent fixation and opposition of the quadricep tendon repair on the superior pole patella. The small layer of good quadricep tendon tissue was then laid back over the repair and sutured on the spine itself in pants over vest fashion with an additional Arthrex #2 FiberWire with simple interrupted suture. I then repaired the retinaculum with Arthrex FiberWire as well. I then stressed my repair and took the knee through range of motion and there was no diastases or gapping at roughly at 45 degrees at my repair.. I then kept the knee in extension. Thoroughly irrigated the wound bed. Tourniquet was deflated hemostasis satisfactory I then closed the incision in layered fashion of 2 -0 strata fix suture 3 -0 strata fix and nancy for the skin , xeroform, 4x4 dressing applied with ABDs Kerlix and a double 6 inch Eamon and patient was placed in a knee immobilizer brace locked in full extension. Patient was awakened from anesthesia and taken to PACU in stable condition. Disposition: Patient taken back in stable condition recovering well pain controlled. Patient received appropriate discharge structure as well as pain medication DVT prophylaxis postoperatively, will resume his home coumadin for this. To follow-up with us in the office in 2 weeks. Should be Toe touch only weightbearing with knee locked in full extension at this time. All questions answered we will see in the office in 2 weeks.
[2024-04-16] MEDS: fentaNYL 50 mcg/mL INJ 2mL IVP (13:40)
--- NOTE | 2024-04-16 13:46 | PM.PACU ---
PACU note Narrative: Patient is a 74-year-old male that just underwent a left quad tendon repair. Pt transferred to PACU in stable condition. Dressing is dry. Patient is somnolescent but arousable. Pt can wiggle toes and plantarflex and dorsiflex foot. pt able to perform straight leg raise, Femoral nerve intact. Distal pulses are palpable toes are warm and well-perfused. Cap refill is normal and under 2 seconds. Sensation to foot is intact. Pain is controlled. Exam: somnolent, arousable Disposition: discharged
--- NOTE | 2024-04-16 13:59 | ANE.PACU2 ---
Inpatient post-anesthesia follow up: Airway intact: Yes Vital signs: Temperature 98 F Pulse Rate 74 Respiratory Rate 16 Blood Pressure 146/74 Pulse Oximetry 95 Oxygen Delivery Me thod Room Air Oxygen Flow Rate Fraction of Inspir ed Oxygen Hydration adequate: Yes Nausea and vomiting: No Pain level: 1 Mental status: Baseline
[2024-04-16] MEDS: HYDROcodone-acetaminophen 7.5-325 mg Tablet 1 TAB PO (14:09)
--- NOTE | 2024-04-16 14:56 | SUR.PHASEII ---
1423 patient texted grandson who is in [place] is coming to [facility] patient,it is 2 hrs away
== END 2024-04-16 16:55 | disposition home or self-care (01) ==
PROVIDERS: Physician Assistant; Student in an Organized Health Care Education/Training Program; PCP Nurse Practitioner Family; Visit Provider Student in an Organized Health Care Education/Training Program
PROC: (CPT 27385; principal; 2024-04-16 11:55)
PROC: (CPT 27385; 2024-04-16 11:55)
DX: S76.112A Strain of left quadriceps muscle, fascia and tendon, initial encounter (principal); X58.XXXA Exposure to other specified factors, initial encounter; G47.33 Obstructive sleep apnea (adult) (pediatric); I10 Essential (primary) hypertension; K21.9 Gastro-esophageal reflux disease without esophagitis; Z79.01 Long term (current) use of anticoagulants
CPT/HCPCS: 27385; 36415; 36416; 73560; 76000; 80048; 82962; 85610; C1713; J0131; J1100; J2405; J2704; J2795; J3010; J3370; J3490; J7030

== ENCOUNTER 2024-05-02 09:40 | Outpatient (CLI) | payer OTHER, SELFPAY | END 2024-05-02 09:41 | disposition home or self-care (01) | LOC: SPT 09:40 | PROVIDERS: PCP Nurse Practitioner Family; Visit Provider Student in an Organized Health Care Education/Training Program | DX: Z46.89 Encounter for fitting and adjustment of other specified devices (principal); S76.112S Strain of left quadriceps muscle, fascia and tendon, sequela; X58.XXXS Exposure to other specified factors, sequela | CPT/HCPCS: L1832 ==

== ENCOUNTER → 2024-05-20 08:31 | Outpatient (BNVA) | payer OTHER, SELFPAY | PROVIDERS: PCP Nurse Practitioner Family; Visit Provider Student in an Organized Health Care Education/Training Program | DX: X58.XXXD Exposure to other specified factors, subsequent encounter; S76.112D Strain of left quadriceps muscle, fascia and tendon, subsequent encounter | CPT/HCPCS: 99213 ==

== ENCOUNTER 2024-05-22 06:00 | Outpatient (RCR) | payer OTHER, SELFPAY | END 2024-06-06 23:59 | disposition home or self-care (01) | LOC: TPT 06:00 | PROVIDERS: Visit Provider Student in an Organized Health Care Education/Training Program | DX: Z47.89 Encounter for other orthopedic aftercare (principal) | CPT/HCPCS: 97032; 97110; 97161 ==

== ENCOUNTER 2024-06-07 06:00 | Outpatient (RCR) | payer OTHER, SELFPAY | END 2024-07-04 23:59 | disposition home or self-care (01) | LOC: TPT 06:00 | PROVIDERS: PCP Nurse Practitioner Family; Visit Provider Student in an Organized Health Care Education/Training Program | DX: Z98.890 Other specified postprocedural states (principal) | CPT/HCPCS: 97110 ==

== ENCOUNTER → 2024-06-10 08:34 | Outpatient (BNVA) | payer OTHER, SELFPAY | PROVIDERS: PCP Nurse Practitioner Family; Visit Provider Student in an Organized Health Care Education/Training Program | DX: S76.112A Strain of left quadriceps muscle, fascia and tendon, initial encounter (principal); W19.XXXA Unspecified fall, initial encounter | CPT/HCPCS: 99024 ==

== ENCOUNTER 2024-06-12 08:40 | Outpatient (CLI) | payer OTHER, SELFPAY ==
--- NOTE | 2024-06-12 09:00 | CT_ITS ---
WS: [id number] CT LEFT LOWER LEG, NONCONTRAST HISTORY: status post quad tendon repair/new fall/injury Technique: All CT scans at [facility] use at least one of these dose optimization techniques: automated exposure control; mA and/or kV adjustment per patient size (includes targeted exams where dose is matched to clinical indication); or iterative reconstruction. DLP: 1159.90 mGy.cm COMPARISON: 03/31/2024. No fracture of the LEFT tibia and fibula. The patella is slightly low riding but otherwise remains in normal position. There is a large suprapatellar effusion. The recently repaired distal quadriceps tendon appears absent distally. The conjoined tendon is not visualized on this noncontrast CT. Vastus medialis and lateral laterals appear intact. There is a fluid gap without tendon measuring approximately 3.2 cm in length. There is also increased attenuation in the central quadriceps tendon which is most indicative of hemorrhage at the site of retraction. Extensive vascular calcifications beginning in the popliteal artery to the ankle. There is extensive, near confluent peripheral vascular disease. CT/CT lower leg LT wo con* [id number] IMPRESSION: 1. Central conjoined distal quadriceps tendon is absent at the patellar insert ion site. 2. There is a large fluid collection in the suprapatellar bursa extending supe riorly. 3. Higher attenuation in the distal quadriceps tendon stump indicating hemorrh age. Area of suspected hemorrhage is approximately 4.2 cm from the patella.
== END 2024-06-12 08:41 | disposition home or self-care (01) ==
LOC: RAD 08:41
PROVIDERS: PCP Nurse Practitioner Family; Visit Provider Student in an Organized Health Care Education/Training Program
DX: S76.119A Strain of unspecified quadriceps muscle, fascia and tendon, initial encounter (principal); S76.112A Strain of left quadriceps muscle, fascia and tendon, initial encounter; R93.6 Abnormal findings on diagnostic imaging of limbs; W19.XXXA Unspecified fall, initial encounter; M25.462 Effusion, left knee; I70.8 Atherosclerosis of other arteries; I73.9 Peripheral vascular disease, unspecified
CPT/HCPCS: 73700

== ENCOUNTER 2024-06-13 07:34 | Outpatient (CLI) | payer OTHER, SELFPAY ==
--- NOTE | 2024-06-13 08:00 | USR_ITS ---
PROCEDURE INFORMATION: Exam: US Left Limited Joint or Other Non-Vascular Extremity Structure Exam date and time: 06/13/2024 7:44 AM Age: 74 years old Clinical indication: Injury or trauma; Sprain or strain; Arm, upper; Left; Additional info: S76.119a - strain of unspecified quadriceps muscle, fasci. . . , [facility] auth/left knee - valid 03/18/24-09/14/24 TECHNIQUE: Imaging protocol: US left limited joint or other nonvascular extremity structure. Real-time ultrasound with image documentation. Exam focused on the area of clinical interest. COMPARISON: CT abdomen pelvis w con* [id number] 04/14/2021 8:08 PM FINDINGS: Soft tissues: The quadriceps tendon is not well-defined and appears somewhat thickened. No definite focal tear is seen. Other findings: There is a fluid collection deep to what is felt to be muscular and tendon structures most likely representing joint effusion. US/US soft tissue/extremity [id number] IMPRESSION: 1. Fluid collection felt to represent a joint effusion. 2. Ill-defined quadriceps tendon which appears somewhat thickened. No definite focal tear seen. No prior relevant studies available for comparison. 3. If there is persistent clinical concern, MRI may be helpful for further evaluation.
== END 2024-06-13 07:35 | disposition home or self-care (01) ==
PROVIDERS: PCP Nurse Practitioner Family; Visit Provider Student in an Organized Health Care Education/Training Program
DX: S76.112A Strain of left quadriceps muscle, fascia and tendon, initial encounter (principal); X58.XXXA Exposure to other specified factors, initial encounter; R93.89 Abnormal findings on diagnostic imaging of other specified body structures
CPT/HCPCS: 76882

== ENCOUNTER → 2024-06-18 08:02 | Outpatient (BNVA) | payer OTHER, SELFPAY | PROVIDERS: PCP Nurse Practitioner Family; Visit Provider Student in an Organized Health Care Education/Training Program | DX: S76.112D Strain of left quadriceps muscle, fascia and tendon, subsequent encounter (principal); S83.92XD Sprain of unspecified site of left knee, subsequent encounter; X58.XXXD Exposure to other specified factors, subsequent encounter | CPT/HCPCS: 99024; 99214 ==

== ENCOUNTER 2024-07-05 06:00 | Outpatient (RCR) | payer OTHER, SELFPAY | END 2024-08-04 23:59 | disposition home or self-care (01) | LOC: TPT 06:00 | PROVIDERS: PCP Nurse Practitioner Family; Visit Provider Student in an Organized Health Care Education/Training Program | DX: Z98.890 Other specified postprocedural states (principal) | CPT/HCPCS: 97110; 97164 ==

== ENCOUNTER 2024-07-30 12:01 | Outpatient (CLI) | payer OTHER, SELFPAY | END 2024-07-30 12:02 | disposition home or self-care (01) | LOC: SPT 12:02 | PROVIDERS: PCP Nurse Practitioner Family; Visit Provider Student in an Organized Health Care Education/Training Program | DX: Z98.890 Other specified postprocedural states (principal); Z46.89 Encounter for fitting and adjustment of other specified devices | CPT/HCPCS: 99213 ==

== ENCOUNTER 2024-08-05 06:00 | Outpatient (RCR) | payer OTHER, SELFPAY | END 2024-09-03 23:59 | disposition home or self-care (01) | LOC: TPT 06:00 | PROVIDERS: Visit Provider Student in an Organized Health Care Education/Training Program | DX: Z98.890 Other specified postprocedural states (principal); M25.511 Pain in right shoulder | CPT/HCPCS: 97110; 97164 ==

== ENCOUNTER → 2024-08-12 12:56 | Outpatient (BNVA) | payer OTHER, SELFPAY | PROVIDERS: PCP Nurse Practitioner Family; Visit Provider Student in an Organized Health Care Education/Training Program | DX: M75.41 Impingement syndrome of right shoulder (principal) | CPT/HCPCS: 99214; J3301; J9999 ==

== ENCOUNTER → 2024-08-19 13:10 | Outpatient (BNVA) | payer OTHER, SELFPAY | PROVIDERS: PCP Nurse Practitioner Family; Visit Provider Student in an Organized Health Care Education/Training Program | DX: M16.12 Unilateral primary osteoarthritis, left hip (principal) | CPT/HCPCS: 99214 ==

== ENCOUNTER 2024-09-04 06:30 | Outpatient (RCR) | payer OTHER, SELFPAY | END 2024-10-04 23:59 | disposition home or self-care (01) | LOC: TPT 06:30 | PROVIDERS: Visit Provider Student in an Organized Health Care Education/Training Program | DX: M25.551 Pain in right hip (principal); M25.552 Pain in left hip | CPT/HCPCS: 97110; 97161 ==

== ENCOUNTER 2024-09-04 06:30 | Outpatient (RCR) | payer OTHER, SELFPAY | END 2024-10-04 23:55 | disposition home or self-care (01) | LOC: TPT 06:30 | PROVIDERS: Visit Provider Student in an Organized Health Care Education/Training Program | DX: M25.511 Pain in right shoulder (principal) | CPT/HCPCS: 97110; 97161 ==

== ENCOUNTER 2024-09-04 06:30 | Outpatient (RCR) | payer OTHER, SELFPAY | END 2024-10-04 23:55 | disposition home or self-care (01) | LOC: TPT 06:30 | PROVIDERS: Visit Provider Student in an Organized Health Care Education/Training Program | DX: Z98.890 Other specified postprocedural states (principal); M25.511 Pain in right shoulder | CPT/HCPCS: 97110 ==

== ENCOUNTER → 2024-09-19 12:00 | Outpatient (BNVA) | payer OTHER, SELFPAY | PROVIDERS: PCP Nurse Practitioner Family; Visit Provider Student in an Organized Health Care Education/Training Program | DX: M16.12 Unilateral primary osteoarthritis, left hip (principal) | CPT/HCPCS: 20610; 77002; J3301; J9999 ==

== ENCOUNTER 2024-10-05 06:30 | Outpatient (RCR) | payer OTHER, SELFPAY | END 2024-11-03 23:59 | disposition home or self-care (01) | LOC: TPT 06:30 | PROVIDERS: PCP Nurse Practitioner Family; Visit Provider Student in an Organized Health Care Education/Training Program | DX: M25.511 Pain in right shoulder (principal) | CPT/HCPCS: 97110 ==

== ENCOUNTER 2024-10-05 06:30 | Outpatient (RCR) | payer OTHER, SELFPAY | END 2024-11-03 23:59 | disposition home or self-care (01) | LOC: TPT 06:30 | PROVIDERS: PCP Nurse Practitioner Family; Visit Provider Student in an Organized Health Care Education/Training Program | DX: M25.511 Pain in right shoulder (principal) | CPT/HCPCS: 97110 ==

== ENCOUNTER 2024-10-05 06:30 | Outpatient (RCR) | payer OTHER, SELFPAY | END 2024-11-03 23:59 | disposition home or self-care (01) | LOC: TPT 06:30 | PROVIDERS: PCP Nurse Practitioner Family; Visit Provider Student in an Organized Health Care Education/Training Program | DX: M25.551 Pain in right hip (principal); M25.552 Pain in left hip | CPT/HCPCS: 97110; 97116 ==

== ENCOUNTER → 2024-10-29 08:59 | Outpatient (BNVA) | payer OTHER, SELFPAY | PROVIDERS: PCP Nurse Practitioner Family; Visit Provider Student in an Organized Health Care Education/Training Program | DX: M75.41 Impingement syndrome of right shoulder (principal); S83.92XA Sprain of unspecified site of left knee, initial encounter; S83.91XA Sprain of unspecified site of right knee, initial encounter; S76.112A Strain of left quadriceps muscle, fascia and tendon, initial encounter | CPT/HCPCS: 99213 ==

== ENCOUNTER 2024-11-04 05:00 | Outpatient (RCR) | payer OTHER, SELFPAY | END 2024-12-04 23:59 | disposition home or self-care (01) | LOC: TPT 05:00 | PROVIDERS: PCP Nurse Practitioner Family; Visit Provider Student in an Organized Health Care Education/Training Program | DX: M25.511 Pain in right shoulder (principal) | CPT/HCPCS: 97110 ==

== ENCOUNTER 2024-11-04 05:00 | Outpatient (RCR) | payer OTHER, SELFPAY | END 2024-12-04 23:59 | disposition home or self-care (01) | LOC: TPT 05:00 | PROVIDERS: PCP Nurse Practitioner Family; Visit Provider Student in an Organized Health Care Education/Training Program | DX: M25.562 Pain in left knee (principal); M25.511 Pain in right shoulder | CPT/HCPCS: 97110 ==

== ENCOUNTER 2024-11-04 05:00 | Outpatient (RCR) | payer OTHER, SELFPAY | END 2024-12-04 23:59 | disposition home or self-care (01) | LOC: TPT 05:00 | PROVIDERS: PCP Nurse Practitioner Family; Visit Provider Student in an Organized Health Care Education/Training Program | DX: M25.551 Pain in right hip (principal); M25.552 Pain in left hip | CPT/HCPCS: 97110 ==

== ENCOUNTER 2025-03-05 12:28 | Outpatient (RCR) | payer OTHER, SELFPAY | END 2025-03-06 23:59 | disposition home or self-care (01) | LOC: TPT 12:28 | PROVIDERS: Visit Provider Nurse Practitioner Family | DX: M17.9 Osteoarthritis of knee, unspecified (principal) | CPT/HCPCS: 97110; 97162 ==

== ENCOUNTER → 2025-03-24 15:40 | Outpatient (BNVA) | payer OTHER, SELFPAY | PROVIDERS: Visit Provider Student in an Organized Health Care Education/Training Program | DX: M75.41 Impingement syndrome of right shoulder (principal) | CPT/HCPCS: 73030 ==

== ENCOUNTER 2025-03-31 12:17 | Outpatient (RCR) | payer OTHER, SELFPAY | END 2025-04-05 23:59 | disposition home or self-care (01) | LOC: TPT 12:17 | PROVIDERS: Visit Provider Nurse Practitioner Family | DX: M17.9 Osteoarthritis of knee, unspecified (principal) | CPT/HCPCS: 20610; 97110; 99213; J3301; J9999 ==

== ENCOUNTER 2025-04-09 11:57 | Outpatient (RCR) | payer OTHER, SELFPAY | END 2025-05-06 23:59 | disposition home or self-care (01) | LOC: TPT 11:57 | PROVIDERS: Visit Provider Nurse Practitioner Family | DX: M17.9 Osteoarthritis of knee, unspecified (principal) | CPT/HCPCS: 97110; 97164 ==